=== PATIENT | female | born 1990 | race Caucasian/White ===

== ENCOUNTER 2019-03-25 23:02 | Emergency (ER) | payer MEDICAID ==
[2019-03-26 00:12] LABS: URINE PH (Dip) POC 5.5 (5.0-8.5)
[2019-03-26 00:12] LABS: URINE BLOOD (Dip) POC Negative (NEGATIVE); URINE GLUCOSE (Dip) POC Negative (NEGATIVE); URINE KETONES (Dip) POC Negative (NEGATIVE); URINE LEUKOCYTE EST (Dip) POC Negative (NEGATIVE); URINE NITRITE (Dip) POC Negative (NEGATIVE); URINE TOTAL PROTEIN POC Negative (NEGATIVE)
[2019-03-26] MEDS: KETOROLAC 30 MG INJ IM (00:17)
[2019-03-26] MEDS: LORAZEPAM 1 MG TAB PO (00:17)
== END 2019-03-26 01:38 | disposition home or self-care (01) ==
LOC: FTE 23:02
DX: F41.9 Anxiety disorder, unspecified (principal); R10.9 Unspecified abdominal pain
CPT/HCPCS: 81003; 81025; 93005; 96372; 99284-25